=== PATIENT | male | born 1990 | race Caucasian/White ===

== ENCOUNTER 2021-02-15 12:51 | Emergency (ER) | payer OTHER ==
[~2021-02-15] VITALS: Ht 172.7 cm; Wt 79.4 kg
[2021-02-15 13:01] VITALS: BP 173/85
== END 2021-02-15 14:07 | disposition home or self-care (01) ==
LOC: M.ERS 12:51
DX: S61.011A Laceration without foreign body of right thumb without damage to nail, initial encounter (principal); W26.0XXA Contact with knife, initial encounter; Y93.89 Activity, other specified; Y92.89 Other specified places as the place of occurrence of the external cause; Y99.9 Unspecified external cause status